=== PATIENT | female | born 1950 | race Asian ===

== ENCOUNTER 2017-09-23 15:00 | Emergency (ER) | payer BC, OTHER ==
[~2017-09-23] VITALS: Ht 157.5 cm; Wt 59.0 kg
[2017-09-23 15:17] VITALS: BP 107/74
== END 2017-09-23 17:03 | disposition home or self-care (01) ==
LOC: EDBD 15:00 → ER 15:00 → EDUNIT# 15:00 → ER 17:03
DX: S16.1XXA Strain of muscle, fascia and tendon at neck level, initial encounter (principal); S09.90XA Unspecified injury of head, initial encounter; Z88.0 Allergy status to penicillin; V48.5XXA Car driver injured in noncollision transport accident in traffic accident, initial encounter; Y93.89 Activity, other specified; Y99.8 Other external cause status; Y92.89 Other specified places as the place of occurrence of the external cause
CPT/HCPCS: 70450; 72125